=== PATIENT | male | born 2000 | race Two or more races ===

== ENCOUNTER 2021-03-17 16:26 | Emergency (ER) | payer SELFPAY ==
[~2021-03-17] VITALS: Ht 177.8 cm; Wt 82.0 kg
[2021-03-17] MEDS ORDERED: IBUPROFEN 600 MG TABLET PO ONE (19:15)
[2021-03-17 20:30] VITALS: BP 127/88
== END 2021-03-17 21:37 | disposition home or self-care (01) ==
LOC: EMS 16:28
DX: S82.51XA Displaced fracture of medial malleolus of right tibia, initial encounter for closed fracture (principal); W22.8XXA Striking against or struck by other objects, initial encounter; Y93.39 Activity, other involving climbing, rappelling and jumping off; Y92.89 Other specified places as the place of occurrence of the external cause; Y99.8 Other external cause status
CPT/HCPCS: 29515; 99283